=== PATIENT | female | born 1985 | race Caucasian/White ===

== ENCOUNTER 2019-09-23 08:56 | Inpatient (IN) | payer OTHER ==
[~2019-09-23] VITALS: Ht 165.1 cm; Wt 104.3 kg
[2019-09-23] MEDS ORDERED: RINGERS SOLUTION,LACTATED 1,000 ML IV ONE (09:02)
[2019-09-23] MEDS ORDERED: METHYLERGONOVINE MALEATE 0.2 MG/ML VIAL IM PRN (09:15)
[2019-09-23] MEDS ORDERED: METOCLOPRAMIDE HCL 5 MG/ML 2 ML VIAL IVP ONE (09:15)
[2019-09-23] MEDS ORDERED: CITRIC ACID/SODIUM CITRATE 30 ML SOLUTION UDCUP PO ONE (09:15)
[2019-09-23 09:18] VITALS: BP 116/67
[2019-09-23 09:40] LABS: BASOPHILS % (AUTO) 0.9 % (0.0-2.0); EOSINOPHILS % (AUTO) 0.5 % (1.0-6.0); HEMATOCRIT 34.3 % (36-46); HEMOGLOBIN 11.2 g/dL (12.0-16.0); LYMPHOCYTES # (AUTO) 1.7 K/uL (1.0-4.8); LYMPHOCYTES % (AUTO) 16.2 % (22.0-44.0); MEAN CORPUSCULAR HEMOGLOBIN 24.4 pg (26.0-34.0); MEAN CORPUSCULAR HGB CONC 32.5 G/dL (31.0-37.0); MEAN CORPUSCULAR VOLUME 75 fL (80-100); MONOCYTES # (AUTO) 0.7 K/uL (0.1-1.0); MONOCYTES % (AUTO) 6.9 % (2.0-9.0); NEUTROPHILS # (AUTO) 7.8 K/uL (1.8-7.7); NEUTROPHILS % (AUTO) 75.5 % (40.0-70.0); PLATELET COUNT (AUTO) 261 K/uL (150-450); RED BLOOD CELL COUNT(AUTO) 4.58 MIL/uL (4.00-5.20); RED CELL DISTRIBUTION WIDTH 16.7 % (11.5-14.5)
[2019-09-23] MEDS ORDERED: RINGERS SOLUTION,LACTATED 1,000 ML IV SCH (10:01)
[2019-09-23] MEDS ORDERED: BUPIVACAINE HCL/DEX-WATER/PF 0.75% 2 ML AMP ONE (10:02)
[2019-09-23] MEDS ORDERED: FentaNYL CITRATE-PF 100 MCG/2 ML VIAL ONE (10:02)
[2019-09-23] MEDS ORDERED: MORPHINE SULFATE/PF 1 MG/ML 10 ML AMP ONE (10:02)
[2019-09-23] MEDS ORDERED: ACETAMINOPHEN 1000 MG/ISO-OSM 100 ML IV ONE (10:02)
[2019-09-23] MEDS ORDERED: PREN-217 PO (10:11)
[2019-09-23] MEDS ORDERED: MORPHINE SULFATE 10 MG/ML SYRINGE IVP PRN (10:15)
[2019-09-23] MEDS ORDERED: NALOXONE HCL 0.4 MG/ML VIAL IVP PRN (10:15)
[2019-09-23] MEDS ORDERED: ONDANSETRON HCL 4 MG/2 ML VIAL IVP PRN ×2 (10:15→11:15)
[2019-09-23] MEDS ORDERED: NALBUPHINE HCL 10 MG/ML VIAL IVP PRN ×2 (10:15)
[2019-09-23] MEDS ORDERED: DiphenhydrAMINE HCL 50 MG/ML VIAL IVP PRN (10:15)
[2019-09-23] MEDS ORDERED: FentaNYL CITRATE-PF 100 MCG/2 ML VIAL IVP PRN (11:15)
[2019-09-23] MEDS ORDERED: MEPERIDINE-PF 25 MG/ML VIAL IVP PRN (11:15)
[2019-09-23] MEDS ORDERED: GUM MASTIC/STORAX/MSAL/ALCOHOL LIQUID 0.67 ML VIAL TP ONE (11:35)
[2019-09-23] MEDS ORDERED: OXYTOCIN 10 UNITS/ML VIAL IM ONE (12:00)
[2019-09-23] MEDS ORDERED: ONDANSETRON HCL 4 MG/2 ML VIAL IVP ONE (12:00)
[2019-09-23] MEDS ORDERED: EPHEDrine SULFATE 50 MG/ML VIAL IM ONE (12:00)
[2019-09-23] MEDS ORDERED: DEXAMETHASONE SOD PHOS 4 MG/ML VIAL IVP ONE (12:00)
[2019-09-23] MEDS ORDERED: OXYTOCIN 30 UNITS/LACT RINGERS 500 ML IV ONE (12:53)
[2019-09-23] MEDS ORDERED: OxyCODONE HCL/ACETAMINOPHEN 5-325 MG TABLET PO PRN (13:00)
[2019-09-23] MEDS ORDERED: LANOLIN 7 GM OINTMENT TP PRN (13:00)
[2019-09-23] MEDS: RINGERS SOLUTION,LACTATED 1,000 ML IV SCH ×2 (16:28→23:54)
[2019-09-23] MEDS ORDERED: ACETAMINOPHEN 1000 MG/ISO-OSM 100 ML IV SCH (17:00)
[2019-09-23] MEDS ORDERED: BUTORPHANOL TARTRATE 2 MG/ML VIAL IVP PRN (19:00)
[2019-09-23] MEDS ORDERED: OXYGEN THERAPY IH SCH ×2 (20:00)
[2019-09-23] MEDS: MAGNESIUM HYDROXIDE SUSPENSION 30 ML UDCUP PO SCH (21:00)
[2019-09-23] MEDS: FentaNYL CITRATE-PF 100 MCG/2 ML VIAL IVP PRN (23:53)
[2019-09-24 06:38] LABS: BASOPHILS % (AUTO) 0.5 % (0.0-2.0); EOSINOPHILS % (AUTO) 0.1 % (1.0-6.0); HEMOGLOBIN 9.2 g/dL (12.0-16.0); LYMPHOCYTES # (AUTO) 2.2 K/uL (1.0-4.8); LYMPHOCYTES % (AUTO) 16.5 % (22.0-44.0); MEAN CORPUSCULAR HGB CONC 31.9 G/dL (31.0-37.0); MEAN CORPUSCULAR VOLUME 75 fL (80-100); MONOCYTES # (AUTO) 1.2 K/uL (0.1-1.0); MONOCYTES % (AUTO) 9.2 % (2.0-9.0); NEUTROPHILS % (AUTO) 73.7 % (40.0-70.0); PLATELET COUNT (AUTO)-OB 236 K/uL (150-450); RED BLOOD CELL COUNT(AUTO) 3.85 MIL/uL (4.00-5.20); RED CELL DISTRIBUTION WIDTH 16.9 % (11.5-14.5)
[2019-09-24] MEDS: FentaNYL CITRATE-PF 100 MCG/2 ML VIAL IVP PRN (07:49)
[2019-09-24] MEDS: MAGNESIUM HYDROXIDE SUSPENSION 30 ML UDCUP PO SCH ×2 (11:03→20:21)
[2019-09-24] MEDS: OxyCODONE HCL/ACETAMINOPHEN 5-325 MG TABLET PO PRN ×2 (15:39→19:36)
[2019-09-24] MEDS: IBUPROFEN 800 MG TABLET PO PRN (15:40)
[2019-09-25] MEDS: IBUPROFEN 800 MG TABLET PO PRN ×3 (02:45→17:16)
[2019-09-25] MEDS: OxyCODONE HCL/ACETAMINOPHEN 5-325 MG TABLET PO PRN ×3 (08:26→21:05)
[2019-09-25] MEDS: MAGNESIUM HYDROXIDE SUSPENSION 30 ML UDCUP PO SCH ×2 (09:00→21:00)
[2019-09-25] MEDS ORDERED: SENNA/DOCUSATE SODIUM 8.6-50 MG TABLET PO ONE (09:00)
[2019-09-26] MEDS: OxyCODONE HCL/ACETAMINOPHEN 5-325 MG TABLET PO PRN ×3 (03:18→15:19)
[2019-09-26] MEDS: IBUPROFEN 800 MG TABLET PO PRN (07:08)
[2019-09-26] MEDS: MAGNESIUM HYDROXIDE SUSPENSION 30 ML UDCUP PO SCH (09:00)
[2019-09-26] MEDS ORDERED: GUM MASTIC/STORAX/MSAL/ALCOHOL LIQUID 0.67 ML VIAL TP ONE ×3 (13:50→14:15)
[2019-09-26] MEDS ORDERED: IBUP-2071 PO (14:55)
[2019-09-26] MEDS ORDERED: DOCU-275 PO (14:55)
== END 2019-09-26 15:25 | disposition home or self-care (01) | DRG 785 ==
LOC: 4S 08:56 → PREOBSVTOIN 10-02 09:19
PROVIDERS: ADMIT Obstetrics & Gynecology; ATTEND Obstetrics & Gynecology
PROC: 10D00Z1 Extraction of Products of Conception, Low, Open Approach (ICD-10-PCS; principal; 2019-09-23)
PROC: 0UB70ZZ Excision of Bilateral Fallopian Tubes, Open Approach (ICD-10-PCS; 2019-09-23)
DX: O34.211 Maternal care for low transverse scar from previous cesarean delivery (principal); Z3A.39 39 weeks gestation of pregnancy; Z37.0 Single live birth
CPT/HCPCS: 86850; 86900; 86901; 87081; 88302; J0131; J0690; J1100; J2405; J2590; J2765; J3010; J3490; J7120